=== PATIENT | female | born 1990 ===

== ENCOUNTER 2021-10-03 08:16 | Outpatient (REF) | payer OTHER, SELFPAY ==
[2021-10-03 08:59] LABS: COVID-19 Test Negative (Negative)
== END 2021-10-03 08:17 | disposition home or self-care (01) ==
LOC: HO.LAB 08:16
PROVIDERS: Visit Provider Internal Medicine
DX: Z20.822 Contact with and (suspected) exposure to COVID-19 (principal)
CPT/HCPCS: 87635; C9803